=== PATIENT | male | born 1980 | race Caucasian/White ===

== ENCOUNTER 2017-06-04 18:38 | Emergency (ER) | payer MEDICAID ==
[~2017-06-04] VITALS: Ht 185.4 cm; Wt 99.8 kg
[2017-06-04 19:05] VITALS: BP 149/95
[2017-06-04 20:05] LABS: Urine Bilirubin Negative (Negative); Urine Blood Negative /uL (Negative); Urine Color Yellow (Yellow); Urine Glucose Normal (Normal); Urine Ketone Negative (Negative); Urine Nitrite Negative (Negative); Urine RBC <1 /hpf (0 - 3); Urine Urobilinogen Normal (Negative); Urine pH 5.5 (5.0-8.0)
[2017-06-04] MEDS ORDERED: IBUPROFEN 600 MG TAB PO ONE (21:15)
[2017-06-04] MEDS ORDERED: BACLOFEN 10 MG TAB PO ONE (21:15)
== END 2017-06-04 21:43 | disposition home or self-care (01) ==
LOC: ER 18:38
DX: S20.211A Contusion of right front wall of thorax, initial encounter (principal); M79.1 Myalgia; F17.210 Nicotine dependence, cigarettes, uncomplicated; F12.10 Cannabis abuse, uncomplicated; W21.05XA Struck by basketball, initial encounter; Y93.67 Activity, basketball; Y99.8 Other external cause status; Y92.89 Other specified places as the place of occurrence of the external cause
CPT/HCPCS: 71101; 81001